=== PATIENT | male | born 1960 | race Caucasian/White ===

== ENCOUNTER 2016-10-21 23:35 | Emergency (ER) | payer SELFPAY | END 2016-10-22 00:57 | disposition left against medical advice (07) | LOC: ED 23:59 | DX: R45.851 Suicidal ideations (principal); Z53.21 Procedure and treatment not carried out due to patient leaving prior to being seen by health care provider ==

== ENCOUNTER 2016-10-22 03:30 | Observation (INO) | payer MEDICAID ==
[~2016-10-22] VITALS: Ht 172.7 cm; Wt 54.2 kg
[2016-10-22] MEDS ORDERED: LORazepam 1MG TABLET PO ONE (05:30)
[2016-10-22] MEDS ORDERED: LORazepam 1MG TABLET ONE (05:50)
[2016-10-22 05:54] LABS: HEMOGLOBIN 13.6 g/dL (13.7-18.0)
[2016-10-22 06:07] LABS: BLOOD UREA NITROGEN 17 mg/dL (7-18)
[2016-10-22 06:09] LABS: ACETAMINOPHEN < 5 mcg/mL (10-30)
[2016-10-22] MEDS ORDERED: POTASSIUM CHLORIDE 20 MEQ TAB.ER.PRT PO ONE (11:00)
[2016-10-22] MEDS ORDERED: ONDANSETRON ODT 4 MG PO PRN (11:00)
[2016-10-22] MEDS ORDERED: ACETAMINOPHEN 325 MG TABLET PO PRN (11:00)
[2016-10-22] MEDS ORDERED: HYDROcodone/APAP 5/325 TABLET PO PRN (11:00)
[2016-10-22] MEDS: QUETIAPINE 200 MG TABLET PO SCH ×3 (11:00→21:00)
[2016-10-22] MEDS ORDERED: ZIPRASIDONE 20 MG INJ IM PRN (11:00)
[2016-10-22] MEDS ORDERED: LORazepam 1MG TABLET PO PRN (11:00)
[2016-10-22 17:11] LABS: DAU SCREEN DISCLAIMER
[2016-10-22 19:47] VITALS: BP 93/60
[2016-10-23 07:59] VITALS: BP 96/59
[2016-10-23] MEDS: QUETIAPINE 200 MG TABLET PO SCH ×2 (08:33→21:00)
[2016-10-23 20:01] VITALS: BP 107/67
[2016-10-24 07:48] VITALS: BP 118/75
[2016-10-24] MEDS: QUETIAPINE 200 MG TABLET PO SCH ×2 (08:26→20:11)
[2016-10-24 19:27] VITALS: BP 90/47
[2016-10-25 07:40] VITALS: BP 94/54
[2016-10-25] MEDS: QUETIAPINE 200 MG TABLET PO SCH (08:17)
== END 2016-10-25 12:59 ==
LOC: ED 08:15 → EDIP 10:42 → 3E 11:48
PROVIDERS: ADMIT Internal Medicine; ATTEND Internal Medicine
DX: R45.851 Suicidal ideations (principal); F20.0 Paranoid schizophrenia; E87.6 Hypokalemia; F29 Unspecified psychosis not due to a substance or known physiological condition; Z87.891 Personal history of nicotine dependence; Z91.19 Patient's noncompliance with other medical treatment and regimen
CPT/HCPCS: 36415; 80048; 80307; 80329; 82040; 85025; 99285; G0378; G0480

== ENCOUNTER 2017-04-25 18:14 | Emergency (ER) | payer MEDICAID ==
[~2017-04-25] VITALS: Ht 172.7 cm; Wt 67.4 kg
[2017-04-25 19:00] LABS: ASPARTATE AMINO TRANSFERASE 18 U/L (15-37); BLOOD UREA NITROGEN 13 mg/dL (7-18)
[2017-04-25 19:04] LABS: ACETAMINOPHEN < 2 mcg/mL (10-30)
[2017-04-25 19:35] LABS: HEMATOCRIT 47.7 % (39.2-51.8); HEMOGLOBIN 16.4 g/dL (13.7-18.0); WHITE BLOOD COUNT 8.6 x10^3/uL (3.4-10)
[2017-04-25 19:44] LABS: DIFF TOTAL CELLS COUNTED 100 CELL DIFF
[2017-04-25 19:49] LABS: VERIFY COUNTS? YES
[2017-04-25 20:27] LABS: HEMATOCRIT 48.1 % (39.2-51.8); HEMOGLOBIN 16.4 g/dL (13.7-18.0)
[2017-04-25 21:18] VITALS: BP 111/72
[2017-04-25 21:35] LABS: DAU SCREEN DISCLAIMER
[2017-04-26] MEDS ORDERED: QUETIAPINE 100MG TABLET PO ONE (00:30)
== END 2017-04-26 00:51 | disposition home or self-care (01) ==
LOC: ED 23:26
DX: F20.0 Paranoid schizophrenia (principal); F41.1 Generalized anxiety disorder; F17.200 Nicotine dependence, unspecified, uncomplicated
CPT/HCPCS: 36415; 80053; 80307; 80329; 85025; 99284; G0479; G0480